=== PATIENT | female | born 1940 | race Caucasian/White ===

== ENCOUNTER 2016-08-30 07:33 | Day surgery (SDC) | payer MEDICARE ==
--- NOTE | 2016-08-24 16:35 | PCM.ANEPRE ---
Anesthesia Pre-Op Review Reason for Review: CARDIAC HX-RECENT PARTIAL WORKUP,TIA WORKUP, STOP BANG 08/10 Anesthesia Recommendations: Proceed with Procedure Additional Comments 76 y/o female with h/o persistent A fib and inguinal hernia scheduled for open right inguinal hernia repair with mesh on 08/30/16. Saw business support professional Dr. Conroy on 07/2016. Cleared for surgery by Dr. Conroy. Cleared to stop Eliquis for 6 doses prior to surgery. A fib is rate controlled. Echo 07/2016 showed EF 65-70% with mild MR, but no other significant valvular disease. Stress test on 06/2016 not completed because of hypertension. > 4 METS, but some HARRIS. Stop Bang 08/10. Recommend postoperative outpatient [place] orders. Proceed with surgery as planned pending evaluation by DOS anesthesiologist. Ronaldo Braswell MD Aug 24, 2016 16:35
[2016-08-30] VITALS (9 sets, daily range): BP systolic 98–136; BP diastolic 42–66; PULSE 64–84; RESP 13–24; O2SAT 92–99
[~2016-08-30] VITALS: Ht 157.5 cm; Wt 88.7 kg
[2016-08-30] MEDS: Lactated Ringer's 1,000 ML IV SCH ×2 (05:54→09:43)
[~2016-08-30 07:33] MED LIST: APIX5TAB PO; CRES20T PO; CeFAZolin 2 Gm/50 mL D5W IV Premix IV ONE; LEVO112T4 PO; LOSA25TA21 PO; METO-272 PO
[2016-08-30] MEDS ORDERED: Dexamethasone 4 mg/mL Inj ONE (07:34)
[2016-08-30] MEDS ORDERED: Propofol 10,000 mCg/mL 20 mL Inj ONE (07:34)
[2016-08-30] MEDS ORDERED: Ondansetron 2 mg/mL 2 mL Inj ONE (07:34)
[2016-08-30] MEDS ORDERED: fentaNYL-PF 50 mCg/mL 2 mL Inj ONE (07:34)
[2016-08-30] MEDS ORDERED: Phenylephrine/NS-PF 100 mCg/mL 5 mL Syringe IVPUSH ONE (07:34)
[2016-08-30] MEDS ORDERED: MeTOProlol 1 mg/mL 5 mL Inj ONE (07:34)
[2016-08-30] MEDS ORDERED: Bupivacaine-MPF 0.5% W/EPI 30 mL Inj INFILTRATE ONE (09:43)
[2016-08-30] MEDS ORDERED: Lactated Ringer's 500 ML IV PRN (10:01)
[2016-08-30] MEDS ORDERED: Lactated Ringer's 1,000 ML IV SCH (10:01)
[2016-08-30] MEDS ORDERED: Ondansetron 2 mg/mL 2 mL Inj IVPUSH PRN (10:05)
[2016-08-30] MEDS ORDERED: HYDROmorphone 1 mg/mL Inj IVPUSH PRN (10:05)
[2016-08-30] MEDS ORDERED: EPHEDrine Sulfate 50 mg/mL Inj IVPUSH PRN (10:05)
[2016-08-30] MEDS ORDERED: Phenylephrine 10,000 mCg/mL Inj IVPUSH PRN (10:05)
[2016-08-30] MEDS ORDERED: fentaNYL-PF 50 mCg/mL 2 mL Inj IVPUSH PRN (10:05)
[2016-08-30] MEDS ORDERED: MetoCLOpramide 5 mg/mL 2 mL Inj IVPUSH PRN (10:05)
[2016-08-30] MEDS ORDERED: Dexamethasone 4 mg/mL Inj IVPUSH PRN (10:05)
[2016-08-30] MEDS ORDERED: oxyCODONE-Acetamin 5-325 mg Tablet PO PRN (11:00)
--- NOTE | 2016-08-30 11:03 | PCM.ANEP1 ---
Post Anesthesia PACU Phase 1 Assessment Vital Signs 36.7, 72, 20, 97%, 111/42 Vital Signs Date Time Temp Pulse Resp B/P Pulse Ox O2 Delivery O2 Flow Rate FiO2 08/30/16 08:20 36.2 65 16 136/64 98 Room Air Anesthetic Administered: GA Level of Alertness: Sleepy, easy to arouse SULLIVAN's with Equal Strength: Yes Pain: No Pain Scale Score: 0 Nausea or Vomiting: No CV Function & Hydration Stable: Yes Airway Device: none Oxygen Delivery: Simple Mask Lungs: Clear to Auscultation Dermatome Level: Full Sensation Summary uneventful GA PACU Phase 2 Assessment Complications: No Follow up Care: No Patient Instructions Provided: N/A Chi Camacho MD Aug 30, 2016 11:03
--- NOTE | 2016-08-30 11:04 | PCM.HPANE ---
Patient Data Date of Service: Aug 30, 2016 (0920) Surgeon Admitting Provider: Attending Provider:Pebbles Keenan MD Primary Care Physician:Katherine Epstein MD Other Provider:Kristine Valentino Anesthesia Reason for Visit Right Inguinal Hernia Ht/WT & BMI Height (Feet): 5 Height (Inches): 2.00 Weight (Kilograms): 88.7 Body Mass Index 35.00 Allergies Coded Allergies: atorvastatin (Verified Allergy, Severe, RASH, HIVES, 08/24/16) hydrocodone (Verified Allergy, Unknown, UNKNOWN, 08/24/16) Sulfa (Sulfonamide Antibiotics) (Verified Adverse Reaction, Severe, ITCHING, 08/24/16) levofloxacin (Verified Adverse Reaction, Severe, FOOT PAIN, 08/24/16) Past Anesthesia History Anesthesia History: Denies:: Anesthesia Reactions, Malignant Hyperthermia Diabetes History Hx Diabetes?: No MRSA MRSA: No Medications Hypertension Medication: Yes (LOSARTAN) Home Meds Incl Beta Micaela: Yes Date Beta Micaela Taken: Aug 29, 2016 Time Beta Micaela Taken: 0500 Reported Medications Levothyroxine 112 Mcg Ixydio200 Mcg PO DAILY For Thyroid Replacement Ref 0 08/24/16 Rosuvastatin Calcium (Crestor)20 Mg Kibrdf10 Mg PO DAILY 30 Days Ref 0 08/24/16 Metoprolol Succinate ER 50 Mg Tab.er.24h50 Mg PO DAILY Ref 0 08/24/16 Losartan Potassium 25 Mg Xlwjbz20 Mg PO DAILY 08/24/16 Apixaban (Eliquis)5 Mg Tablet5 Mg PO BID 08/24/16 Discontinued Reported Medications Aspirin-Expunged Drug, Do Not Renew! (Lo-Dose Aspirin-Expunged Drug, Do Not Renew!)81 Mg Tablet.dr81 Mg PO DAILY 03/01/11 Cholecalciferol-Expunged Drug, Do Not Renew! (Vitamin D3-Expunged Drug, Do Not Renew!)1,000 Unit Tab.chew1,000 Unit PO DAILY 03/01/11 [place]-3/Dha/Epa/Fish Oil-Expunged Drug, Do No (Fish Oil 1,000 Mg-Expunged Drug, Do Not Renew)1 Each Capsule.dr2 Each PO DAILY 03/01/11 Niacin-Expunged Drug, Do Not Renew! 250 Mg Capsule.sa500 Mg PO DAILY 03/01/11 Multivitamin (Daily Value)1 Each Tablet1 Each PO DAILY 03/01/11 Metoprolol Suc-Expunged Drug, Do Not Renew! 50 Mg Tber25 Mg PO DAILY 03/01/11 Levothyroxine-Expunged Drug, Do Not Renew! (Levoxyl-Expunged Drug, Do Not Renew! )175 Mcg Nyvlcn953 Mcg PO DAILY 03/01/11 Rosuvastatin-Expunged Drug, Do Not Renew! (Crestor-Expunged Drug, Do Not Renew!) 20 Mg Lxugzy13 Mg PO EVENING 03/01/11 Hydrocod/APAP-Expunged, Do Not Renew! (VICODIN 5/500-Expunged Drug, Do Not Renew )1 Each Tablet1 Each PO Q4-6H 03/01/11 History History of ENT Problems?: No HEENT History: Positive for:: Cataracts (??S/P EXTRACTION) Hearing Problem (R/T TIA 2014) Denture Type: None Teeth Condition: Within Normal Limits Hx of Heart Problems?: Yes Cardiovascular History: Positive for:: Atrial Fibrillation (ON ELIQUIS ZIO PATCH 07/2016) Cardiac Surgery (S/P HEART CATH W/ BMS IN X 2001 @ [facility]) Chest Pain Coronary Artery Disease Hypertension (HYPERLIPIDEMIA) Valvular Heart Disease (MILD MR) Denies:: Congestive Heart Failure Edema Heart Murmur (ECHO 07/2016 EF 65-70%) Irregular Heartbeat Pacemaker Thrombophlebitis Other Cardiac History: RT INTERNAL CAROTID 50% STENOSIS Hx of Respiratory Problem?: Yes Respiratory History: Positive for:: Dyspnea (HARRIS) Pneumonia (HX OF) Denies:: Use of C-PAP Machine (SNORES) Hx Neurologic Problems?: Yes Neurological History: Positive for:: 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 Skin History: Positive for:: History Skin Disorders? 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) Musculoskeletal Trauma (S/P C/R & PERC PINNING LT MIDDLE FINGER) Osteoarthritis Denies:: Back Injury Hx of Psycho/Social Problems?: No Hx Surgeries?: Yes (B/L LUIZ'S,C/R PERC PIN LT MIDDLE FINGER,HEART CATH W/ STENT , ??CATARACTS) Hx Any Other Health Problems?: Yes Other History: Positive for:: Hospitalization (CHEST PAIN) Thyroid Disease Denies:: Cancer Endocrine Disease History Blood Transfusions: Denies:: Blood Transfuse Reaction Blood Transfusions Hx Diabetes: No Hx Alcohol Use: YesAlcoholic Drinks Per Day: 2/DAYHx Substance Use: NoHave You Smoked inLast 12 mo: No Stop/Bang S-Snoring: Do You Snore Loudly: Yes T-Tired: feel tired, fatigued: Yes O-Obsered: Observed not breath: Yes P-Blood Pressure: treated: Yes B- Body Mass Index > 35 kg/m2: Yes A- Age over 50: Yes N- Neck Large Circumference: No G- Gender Male: No [place] Total Score: 6 [place] Risk Assessment: High Risk, =/>3 Yes Risk Assessment Category Category 1A: Patient has history of documented sleep apnea, and HAS NOT received any narcotic, sedative or anesthesia administration during this stay. Category 1B: Patient has history of documented sleep apnea, and HAS received any narcotic , sedative or anesthesia administration during this stay Category 2: Patient has SUSPECTED Obstructive Sleep Apnea, and HAS received any narcotic , sedative or anesthesia administration during this stay. Category 3: Patient has SUSPECTED Obstructive Sleep Apnea and HAS NOT received narcotic, sedative or anesthesia administration during this stay. Category 4: Outpatient in Procedural Areas with known sleep apnea or who screen positive for High Risk via the STOP/BANG questionnaire. Exam Exam Vital Signs Vital Signs Date Time Temp Pulse Resp B/P Pulse Ox O2 Delivery O2 Flow Rate FiO2 08/30/16 08:20 36.2 65 16 136/64 98 Room Air General Appearance: Alert, Oriented X3, Cooperative HEENT/AIRWAY: MP 1 Lungs: Clear to Auscultation Heart: Exam Unremarkable Meds/Labs/Diagnostics Admission Meds Current Medications Cefazolin Sodium/ Dextrose 2 gm/ Premix 50 ml @ 100 mls/hr PREOP ONCE IV Last administered on 08/30/16t 09:30; Start 08/30/16 at 06:00; Stop 08/30/16 at 06:29; Status DC Lactated Ringer's (Lr) 1,000 ml @ 120 mls/hr Q8H20M IV Last administered on 09:43; Start 08/30/16 at 05:00; Stop 08/30/16 at 13:19 Bupivacaine HCl/ Epinephrine Bitart (Sensorcaine-MPF 0.5% W/EPI Inj) 30 ml STK- MED ONCE INFILTRATE Last administered on 08/30/16 09:43; Start 08/30/16 at 09: 43; Stop 08/30/16 at 09:55; Status DC Plan Impression Patient chart reviewed, patient interviewed and anesthestic plan with risks, benefits, and alternatives discussed, and informed consent obtained. NPO per Anesth. Guidelines: Yes ASA Physical Status: ASA2 Mod Systemic Disease Anesthetic Plan: GA Bene/Risks/Altern/Consents: Yes HP Complete Prior to Induction: Yes Chi Camacho MD Aug 30, 2016 11:04
--- NOTE | 2016-08-30 11:07 | PCM.SURGOP ---
Surgical Operative Report Date of Service: Aug 30, 2016 Pre Operative Diagnosis Right inguinal hernia Post Operative Diagnosis Indirect incarcerated right inguinal hernia Procedure: Open repair of incarcerated right inguinal hernia with mesh Surgeon and Tourist Information Officer: Surgeon: Pebbles Keenan MD Assistants: Leighton Pringle PA-C; the presence of an evaluation assistant was required for retraction. Indication for Procedure This is a 76-year-old woman who presented with a right groin bulge and groin pain. She was having progressive worsening of her symptoms and on examination had a right groin hernia. Therefore, she was booked for repair. Findings: 1. Indirect right inguinal hernia with a very weak floor. 2. Radha repair with Bard soft mesh Procedure Details The patient was brought to the operating room and placed in supine position. General anesthesia with an LMA was smoothly induced. A warming blanket and SCDs were placed. Antibiotics were infused. The operative field was prepped and draped in sterile fashion. A pause was performed to confirm the correct patient, procedure, site, and side. An oblique incision was made between the ASIS and pubic tubercle. Subcutaneous tissue was dissected with electrocautery. The external oblique was incised sharply and divided with Metzenbaum scissors. The round ligament was identified and divided. The ilioinguinal and iliohypogastric nerves were identified and divided high. The hernia sac was identified and dissected off of surrounding tissues. It was opened with Metzenbaum scissors. It contained a large amount of intra- abdominal fat, but no viscera. The contents were incarcerated. They were dissected off of the inner aspect of the hernia sac and reduced. The sac was then twisted, ligated high with a 3-0 Vicryl stitch, amputated and the stump was reduced after hemostasis was confirmed. Attention was then turned to mesh placement. The direct space was noted to be thinned and weak but without a specific hernia defect. It was imbricated with a running 3-0 PDS stitch between the shelving edge of the inguinal ligament and conjoined tendon in order to create a flat floor for mesh placement. A piece of 3 inch by 6 inch ultralight Bard Softmesh was fashioned to size with care taken to provide adequate coverage of the floor. Interrupted 3-0 PDS stitches were then used to suture it into place. The first stitch was placed in the tissue overlying the pubic tubercle with greater than 1 cm of overlap to prevent recurrence. Additional stitches were then used at 1.5 cm intervals to suture the lateral aspect of the mesh to the shelving edge of the inguinal ligament. Several stitches were then placed medially to affix the mesh to the conjoined tendon. At the end of the case, the floor was covered with mesh. The external oblique was then closed with a running 3-0 Vicryl stitch. Subcutaneous tissue was closed with 3-0 Vicryl stitches. The skin was closed with a running 4-0 Monocryl stitch. Marcaine 0.5% with epinephrine was infused in the skin for postoperative analgesia. A sterile dressing was placed. The patient was awakened from general anesthesia and taken to postoperative care unit in good condition. Complications There were no periprocedural complications identified. Surgical Specimen Removed: Yes Specimen sent to Pathology: No Surgical Specimen description: Hernia sac, nerves Anesthetic Plan: GA Grafts, Implants: Implants-See Implant Record Output, Estimated Blood Loss: 5 (ml) Blood Administration during andrews: No Pebbles Keenan MD Aug 30, 2016 11:07
== END 2016-08-30 23:59 | disposition home or self-care (01) ==
LOC: SAS 07:33
PROVIDERS: ATTEND Surgery
DX: K40.30 Unilateral inguinal hernia, with obstruction, without gangrene, not specified as recurrent (principal); I25.10 Atherosclerotic heart disease of native coronary artery without angina pectoris; E03.9 Hypothyroidism, unspecified; I48.1 Persistent atrial fibrillation; E78.5 Hyperlipidemia, unspecified; I10 Essential (primary) hypertension; Z86.73 Personal history of transient ischemic attack (TIA), and cerebral infarction without residual deficits; K21.9 Gastro-esophageal reflux disease without esophagitis; Z87.891 Personal history of nicotine dependence; E66.9 Obesity, unspecified; Z68.36 Body mass index [BMI] 36.0-36.9, adult; Z79.01 Long term (current) use of anticoagulants
CPT/HCPCS: 49507; C1781; J0690; J1100; J2250; J2370; J2405; J3010; J7120